=== PATIENT | male | born 1990 | race Caucasian/White ===

== ENCOUNTER 2018-06-18 06:02 | Day surgery (SDC) | payer BC ==
[~2018-06-18] VITALS: Ht 175.3 cm; Wt 96.6 kg
[2018-06-18] VITALS (11 sets, daily range): BP systolic 97–113; BP diastolic 50–73; PULSE 62–84; RESP 16–18; Ht 175.3 cm; Wt 96.6 kg
[~2018-06-18 06:02] MED LIST: CEFAZOLIN 2 GM/50 ML (PMX) 50 ML IVPB ONE; SOD CHLORIDE 0.9% 1,000 ML IV SCH
[2018-06-18] MEDS ORDERED: LIDOCAINE 1%/EPI (1:100,000) (MDV) 20 ML ONE (06:56)
[2018-06-18] MEDS ORDERED: BUPIVACAINE 0.25% (MPF) 30 ML INJ ONE (06:56)
[2018-06-18] MEDS ORDERED: DESFLURANE 15 MIN ONE (07:00)
[2018-06-18] MEDS ORDERED: ROCURONIUM 50 MG INJ ONE (09:46)
[2018-06-18] MEDS ORDERED: CEFAZOLIN 1 GM INJ ONE (09:46)
[2018-06-18] MEDS ORDERED: GLYCOPYRROLATE 0.4 MG INJ ONE (09:46)
[2018-06-18] MEDS ORDERED: NEOSTIGMINE 3 MG/3 ML SYRINGE ONE (09:46)
[2018-06-18] MEDS ORDERED: PROPOFOL 20 ML ONE (09:46)
[2018-06-18] MEDS ORDERED: DEXAMETHASONE 4 MG/ML 5 ML INJ ONE (09:49)
[2018-06-18] MEDS ORDERED: MIDAZOLAM 1 MG/ML 2 ML INJ ONE (09:49)
[2018-06-18] MEDS ORDERED: FENTAnyl 50 MCG/ML VIAL ONE (09:49)
[2018-06-18] MEDS ORDERED: ONDANSETRON 4 MG INJ ONE (09:49)
--- NOTE | 2018-06-18 13:01 | OPR ---
Date/Time of Note Date/Time of Note DATE: 06/18/18 TIME: 12:58 Operative Report Procedure Date: Jun 18, 2018 Preoperative Diagnosis Extensive pilonidal cyst disease Postoperative Diagnosis Same Operation/Procedure Performed Excision of pilonidal cyst with sinus tract Surgeon Miri Álvarez MD FACS Therapeutic Re[employer] Specialist None Anesthesia Type: general Anesthesiologist: Sammy Frazier M.D. Estimated Blood Loss: 0 - 10 ml's Transfusion none Specimen Pilonidal cysts Grafts/Implants Acell bladder or urinary matrix Complications none Pt Condition Post Procedure: stable Disposition: PACU Indications Patient with extensive pilonidal cyst disease with a history of multiple infections in the past here for excision. Procedure Description Patient was laid prone on the operating table in the gluteal region was prepped and draped with sterile technique. Timeout was conducted. I noted that the area of the pilonidal cyst along the right side of the intergluteal cleft there was significant inflammatory changes insistent with chronic pilonidal cyst inflammation. Patient was noted to have multiple very large cysts. Her foll icles could be seen going into the cyst as well as accompanying sinus cavities that dimpled at the intergluteal cleft. This area was excised in its entirety taking out the cysts completely. This left about a 7 cm gap. The area of the excision was then evaluated in the sinus tract going deeper toward the coccyx was noted and this was also debrided the use of the electrocautery until all accompanying sinuses and inflamed tissue surrounding the cyst was removed. The area of the cyst was irrigated and inspected. There was about a 7 cm defect left. This defect was filled with water urinary matrix powder followed by a 3 layer sheet of ACell to aid in regeneration. I will discuss possible myocutaneous flap for coverage of this large defect with the patient in the near future. MIRI ÁLVAREZ Jun 18, 2018 13:01
--- NOTE | 2018-06-19 13:55 | PAC ---
Date/Time of Note Date/Time of Note DATE: 06/19/18 TIME: 13:55 Post-Anesthesia Notes Post-Anesthesia Note Last documented vital signs Vital Signs Date Temp Pulse Resp B/P (MAP) Pulse Ox O2 O2 Flow FiO2 Time Delivery Rate 06/18/18 97.5 62 16 100/69 99 Room Air 11:55 (79) 06/18/18 2.0 11:40 Activity: WNL Respiratory function: WNL Cardiovascular function: WNL Mental status: Baseline Pain reasonably controlled: Yes Hydration appropriate: Yes Nausea/Vomiting absent: Yes Sammy Frazier M.D. Jun 19, 2018 13:55
== END 2018-06-18 12:21 | disposition home or self-care (01) ==
LOC: SDS 06:02
PROVIDERS: ATTEND Surgery Surgical Critical Care
DX: L05.91 Pilonidal cyst without abscess (principal)
CPT/HCPCS: 11771; 71045; 88304; J0690; J1100; J2250; J2405; J2710; J3010; Q4118; Q4166; Z7512; Z7610

== ENCOUNTER 2018-06-24 14:40 | Emergency (ER) | payer SELFPAY | END 2018-06-24 15:01 | disposition left against medical advice (07) | LOC: E/R 14:40 | DX: Z53.21 Procedure and treatment not carried out due to patient leaving prior to being seen by health care provider (principal) ==